=== PATIENT | male | born 1965 | race Caucasian/White ===

== ENCOUNTER 2018-11-01 07:21 | Outpatient (CLI) | payer OTHER, SELFPAY ==
[2018-11-01 08:01] LABS: Bilirubin Negative (Negative); Blood Moderate (Negative); Clarity Clear (Clear); Glucose Negative (Negative); Ketones Negative (Negative); Leukocyte Esterase Negative (Negative); Nitrite Negative (Negative); Specific Gravity 1.025 (1.005-1.025); Urobilinogen 0.2 EU/dL (Up TO 0.2)
[2018-11-01 08:15] LABS: C & S Indicated? Yes; Epithelial Cells Rare HPF (Negative); Mucus Trace (Negative); WBC 0-2 HPF (0-5)
[2018-11-01 09:35] LABS: CREATININE 1.11 mg/dL (0.70-1.30); Calculated LDL 93 mg/dL; Cholesterol 155 mg/dL (50-200); Glucose 106 mg/dL (70-100); HDL Cholesterol 34 mg/dL (40-60); Potassium 4.1 mmol/L (3.5-5.1); Triglyceride 141 mg/dL (30-150)
[2018-11-01 11:58] LABS: Bacteria Negative HPF (Negative); Crystals Negative HPF (Negative)
== END 2018-11-01 07:41 ==
PROVIDERS: PCP General Practice; Visit Provider General Practice
DX: I10 Essential (primary) hypertension (principal)
CPT/HCPCS: 36415; 80061; 82947; 83721; 81003; 81015; 82565; 84132; 87086

== ENCOUNTER 2018-11-17 11:35 | Outpatient (CLI) | payer OTHER, SELFPAY ==
[2018-11-17 12:02] LABS: Bilirubin Negative (Negative); Blood Small (Negative); Clarity Clear (Clear); Glucose Negative (Negative); Ketones Negative (Negative); Leukocyte Esterase Negative (Negative); Nitrite Negative (Negative); Urobilinogen 0.2 EU/dL (Up TO 0.2); pH 6.5 (5-8)
[2018-11-17 12:13] LABS: Bacteria Few HPF (Negative); C & S Indicated? No; Casts Negative LPF (Negative); Crystals Negative HPF (Negative); Epithelial Cells Rare HPF (Negative); Mucus Negative (Negative); WBC Negative HPF (0-5)
== END 2018-11-17 11:55 ==
PROVIDERS: PCP General Practice; Visit Provider General Practice
DX: R31.21 Asymptomatic microscopic hematuria (principal)
CPT/HCPCS: 81003; 81015

== ENCOUNTER 2019-10-09 16:13 | Outpatient (REF) | payer OTHER, SELFPAY ==
--- NOTE | 2019-10-09 15:10 | PAPNONF_PTH ---
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
[2019-10-09 21:13] LABS: Bilirubin Negative (Negative); Blood Trace-intact (Negative); Clarity Clear (Clear); Glucose Negative (Negative); Ketones Negative (Negative); Leukocyte Esterase Negative (Negative); Nitrite Negative (Negative); Specific Gravity 1.025 (1.005-1.025); Urobilinogen 0.2 EU/dL (Up TO 0.2)
[2019-10-09 21:21] LABS: Bacteria Negative HPF (Negative); C & S Indicated? No; Casts Negative LPF (Negative); Crystals Negative HPF (Negative); Epithelial Cells Rare HPF (Negative); Mucus Negative (Negative); RBC 0-2 HPF (0-2); WBC 0-2 HPF (0-5)
[2019-10-09 21:26] LABS: CREATININE 1.15 mg/dL (0.70-1.30); Potassium 3.8 mmol/L (3.5-5.1)
== END 2019-10-09 16:33 ==
LOC: LBN 16:13
PROVIDERS: PCP Nurse Practitioner; Visit Provider Nurse Practitioner
DX: I10 Essential (primary) hypertension (principal); Z85.828 Personal history of other malignant neoplasm of skin; Z86.19 Personal history of other infectious and parasitic diseases; Z87.448 Personal history of other diseases of urinary system; R31.9 Hematuria, unspecified
CPT/HCPCS: 81003; 81015; 82565; 84132; 88104

== ENCOUNTER 2020-10-22 21:15 | Outpatient (REF) | payer OTHER, SELFPAY ==
[2020-10-22 21:04] LABS: ESR 8 mm/hr (0-20)
[2020-10-22 21:14] LABS: C-Reactive Protein 2.17 mg/dL (0.0-0.3); CREATININE 1.2 mg/dL (0.70-1.30); Potassium 3.8 mmol/L (3.5-5.1); Uric Acid 7.9 mg/dL (3.5-7.2)
[2020-10-22 21:40] LABS: Hemoglobin A1C 5.9 % (<5.7)
[2020-10-24 14:07] LABS: ANA Interpretation Negative (Negative)
== END 2020-10-22 21:16 | disposition home or self-care (01) ==
LOC: LBN 21:15
PROVIDERS: PCP Nurse Practitioner; Visit Provider Physician Assistant
DX: I10 Essential (primary) hypertension (principal); R73.03 Prediabetes; M79.674 Pain in right toe(s)
CPT/HCPCS: 85652; 82565; 83036; 84132; 84550; 86038; 86140

== ENCOUNTER 2020-11-11 15:18 | Outpatient (CLI) | payer OTHER, SELFPAY | END 2020-11-11 15:19 | disposition home or self-care (01) | LOC: LBO 15:19 | PROVIDERS: PCP Nurse Practitioner; Visit Provider Nurse Practitioner | DX: Z77.011 Contact with and (suspected) exposure to lead (principal) | CPT/HCPCS: 36415; 83655 ==

== ENCOUNTER 2020-12-09 02:31 | Outpatient (CLI) | payer OTHER, SELFPAY ==
[2020-12-09 11:47] LABS: ALT 30 U/L (16-63); AST 18 U/L (15-37); Albumin 4.3 g/dL (3.4-5.0); Alkaline Phosphatase 89 U/L (46-116); Anion Gap 7.8 mmol/L (3-11); BUN 19 mg/dL (7-18); Bilirubin, Total 0.6 mg/dL (0.2-1.0); CO2 31.2 mmol/L (21.0-32.0); CREATININE 1.1 mg/dL (0.70-1.30); Calcium 9.3 mg/dL (8.5-10.1); Chloride 102 mmol/L (98-107); Glucose 104 mg/dL (74-106); Potassium 4.3 mmol/L (3.5-5.1); Sodium 141 mmol/L (136-145); Total Protein 7.7 g/dL (6.4-8.2); Uric Acid 7.3 mg/dL (3.5-7.2)
== END 2020-12-09 02:32 | disposition home or self-care (01) ==
LOC: LBO 02:31
PROVIDERS: PCP Nurse Practitioner; Visit Provider Nurse Practitioner
DX: I10 Essential (primary) hypertension (principal); M10.9 Gout, unspecified
CPT/HCPCS: 36415; 80053; 84550

== ENCOUNTER 2021-09-11 08:13 | Day surgery (SDC) | payer OTHER, SELFPAY ==
--- NOTE | 2021-09-11 00:09 | PDOC.DSDIS_ITS ---
Discharge Plan Disposition Patient Disposition: HOME Condition: Good Discharge Details Attending Provider: Terese Britt Primary Care Provider: Shaniqua Osullivan Home Meds and New Rx's Prescriptions: No Action valacyclovir [Valtrex] 1 gram tablet 1,000 mg PO DAILY PRN Label Comments: pt reports last took this 3 months ago hydrochlorothiazide 25 mg tablet 12.5 mg PO DAILY Qty: 90 4RF Discharge Instructions Additional Instructions: DSU Colonoscopy Post- Op Instructions Instructions for Everyone who is given Anesthesia: For your safety, please do the following for the next twenty-four (24) hours: *Do Not operate a motor vehicle (car, truck, motorcycle, etc.) *Do Not drink alcoholic beverages or use any recreational drugs for the first 24 hours or while taking pain medications. The medications in your body may have a reaction that can be dangerous. *Do Not make any important decisions or sign any important papers. Findings: normal Follow up: Repeat in 10 yrs time Of course, you should continue to have a yearly physical exam including a rectal exam, and stool for hemoccult blood testing (testing the stool for microscopic blood.) If you should ever notice any pain or difficulty having a bowel movement, blood in the stool, unexplained weight loss, or change in your bowel habits, please contact your health provider 1. No lifting over 20 pounds or strenuous activity for the first 24 hours after your procedure. After 24 hours there are no restrictions on your activity but you may feel fatigued for a few days. 2. After you arrive home you may have a light meal and return to your normal diet as you can tolerate it without feeling sick to your stomach. 3. You may have a bloated, gaseous feeling in your belly (abdomen) after a colonoscopy. Passing gas and belching will help. Walking or lying down on your left side with your knees flexed may relieve the discomfort. Call the office at [phone] (Office) or [phone] (Hospital) right away if you notice any of the following: a.Vomiting of blood or ?coffee ground stools?. b.Rectal bleeding 1Tbsp, blood clots or continuous bleeding. c.Severe belly (abdominal) pain. d.A hard distended belly (abdomen) and an inability to pass gas. 4. Please don?t expect to have a normal BM (bowel movement) for 2-3 days after your procedure. 5. If there are questions regarding the findings of your procedure, please contact your doctor 6. If you are unable to contact your doctor with a problem, contact the hospital at [phone]. 7. Continue all your regular medications unless directed otherwise. I understand the above instructions and have no questions. Signature of Patient or Adult Escort Name of Responsible Adult Escort Signature of Nurse Date/Time Activity:: see above Diet:: see above Discharge Orders Discharge Orders: Discharge Order (Routine); Ordered 09/10/21 Ordered By: Terese Britt
[2021-09-11 08:35] VITALS: BP 123/89; PULSE 69; RESP 16; TEMP 36.4; O2SAT 100
--- NOTE | 2021-09-11 08:57 | ANES.PREOP_ITS ---
General Info Date of Service Date Performed: 09/11/21 Height: 5 ft 10 in Weight: 82.8 kg Body Mass Index (BMI): 26.2 Surgical Procedure: Operation Date: 09/11/21 09:05 Proposed Procedure Side Surgeon p Colonoscopy Terese Britt DO Actual Procedure Side Surgeon p Colonoscopy Not Applicable Terese Britt DO Pre-Op Diagnosis Post-Op Diagnosis SCREENING COLONOSCOPY Meds Allergies and Home Medications Allergies Allergy/AdvReac Type Severity Reaction Status Date / Time mold AdvReac Severe fatique Verified 09/11/21 08:42 Milk Protein AdvReac Intermediate Left lower Uncoded 09/11/21 08:42 Quad Pain, reflux, change in bowel habits Home Medication Medication Instructions Recorded valacyclovir 1 gram tablet 1,000 mg PO DAILY PRN 12/11/20 (Valtrex) hydrochlorothiazide 25 mg tablet 12.5 mg PO DAILY #90 tabs 07/03/21 Current Visit Medications: Current Medications Generic Name Dose Route Start Last Admin Trade Name Freq PRN Reason Stop Dose Admin Hyoscyamine Sulfate 0.125 mg 09/10/21 09:36 Hyoscyamine 0.125 Mg Sl/Oral/Chew SL DIRECTED PRN Ringer's Solution 1,000 mls @ 80 mls/hr 09/11/21 06:00 IV 10/10/21 23:59 [facility] IV Miscellaneous Supplies 1 each 09/11/21 06:00 Iv Access IV 10/10/21 23:59 DIRECTED TIFFANY Ondansetron HCl 4 mg 09/10/21 09:36 Ondansetron 4 Mg/2 Ml Vial IVP Q4H PRN PRN Nausea / Vomiting Sodium Chloride 0 ml 09/11/21 06:00 Normal Saline Flush 10 Ml Syr IV 10/10/21 23:59 PRN PRN Sodium Chloride 0 ml 09/11/21 06:00 Normal Saline 10 Ml Vial IJ 10/10/21 23:59 DIRECTED PRN Sterile Water 0 ml 09/11/21 06:00 Water,Injection,Sterile 10 Ml Vial IJ 10/10/21 23:59 DIRECTED PRN PFSH Active Problems Active Problems: Problem Status Onset Code Hypertension I10 Screening for colon cancer Z12.11 Medical History Medical History (Updated 09/11/21 @ 08:40 by Jessica Lott RN) Anxiety 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 on 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 Gout History of cold sores History of deviated nasal septum pt reports 25 years ago History of hematuria Lipoma Pre-diabetes Primary HSV infection of mouth Wart Surgical History Surgical History (Updated 09/11/21 @ 08:42 by Jessica Lott RN) History of repair of anterior cruciate ligament of left knee History of surgical removal of ganglion cyst Pt reports 25 years ago, left wrist Tobacco Smoking/Tobacco Use Status: Never Passive smoking exposure: Yes Second hand exposure: Yes Alcohol Alcohol Intake: current Alcohol intake frequency: a few times a month Alcohol type: beer Substance Use Substance use: Never Substance use type: marijuana Vital Signs and Lab Results Vital Signs Most Recent Vital Signs in EMR: Most Recent Vital Signs Temp Pulse Resp BP Pulse Ox 36.4 C L 69 16 123/89 100 09/11/21 08:35 09/11/21 08:35 09/11/21 08:35 09/11/21 08:35 09/11/21 08:35 Lab Results Blood Type / Crossmatch: No Data to Display Complete Blood Count: No Data to Display Complete Metabolic Panel: No Data to Display Liver Function Panel: No Data to Display Coagulation Panel: No Data to Display Cardiac Panel: No Data to Display Arterial Blood Gas: No Data to Display Venous Blood Gas: No Data to Display Pancreas Panel: No Data to Display Thyroid Panel: No Data to Display Infectious Disease: No Data to Display Blood Cultures: No Data to Display Toxicology Panel: No Data to Display Anesthesia Assessment and Plan Anesthesia History Personal History: No History of Anesthesia Complications Family History: No Family History of Anesthesia Complications Exercise Tolerance Exercise Tolerance: Metabolic Equivalents>4 Pertinent Negatives Pertinent Negatives: No Symptoms of GERD, No Major Cardiovascular Symptoms or C omplaints, No Major Pulmonary Symptoms or Complaints and No History of CVA/TIA Cardiac & Pulmonary Exam Cardiac Exam: Normal S1/S2 Heart Sounds Pulmonary Exam: Clear Bilateral Breath Sounds Implantable Cardiac Device Does patient have a Pacemaker or an ICD?: No Airway Exam Known Difficult Airway: No Mallampati Class: 1 Mouth Opening: Normal (> 3cm) Thyromental Distance: Greater than 3 cm Neck Range of Motion: Full ROM Neck Circumference: Normal Teeth Condition: Normal Dentition Airway Comments: 31 cracked per pt ASA Classification ASA Score: ASA 2 Emergency Case?: No NPO Status NPO Status: NPO Clears >2 hours, Solids >8 hours Anesthesia Plan Resuscitation Status: Full Code Anesthesia Technique: General Anesthesia Airway Planned: Natural Airway Monitors Used: Standard Monitors
[2021-09-11 08:59] VITALS: BMI 26.2
[2021-09-11] MEDS: Lactated Ringers 1,000 ML 80 ML IV (09:00)
[2021-09-11 09:50] VITALS: BP 117/81; PULSE 60; RESP 16; TEMP 36.1; O2SAT 98
--- NOTE | 2021-09-11 09:55 | W.ANESPOSTOP ---
Postoperative Evaluation Date, Time and Location Date Performed: 09/11/21 Time Performed: 09:56 Patient Location: Day Surgery Unit Vital Signs Most Recent Imported Vital Signs: Most Recent Vital Signs Temp Pulse Resp BP Pulse Ox 36.4 C L 69 16 123/89 100 09/11/21 08:35 09/11/21 08:35 09/11/21 08:35 09/11/21 08:35 09/11/21 08:35 Most Recent Manually Entered Vital Signs: Adult Blood Pressure: 117/81 Heart Rate: 57 Respirations: 10 Oxygen Saturation (%): 98 Temperature (C): 36.3 C Pain Score (0-10 Scale): 0 Pain Score Most Recent Pain Score: Most Recent Pain Score Pain Level 0 09/11/21 08:35 Assessment Mental Status: Awake (Alert & Oriented to Patient Baseline) Airway and Respiratory Function: Patent airway with normal (patient baseline) respiratory exam Cardiovascular Function: Hemodynamically Stable Hydration Status: Adequately Hydrated Nausea & Vomiting: No Nausea or Vomiting Pain: Pt. Denies Any Pain Peripheral Nerve Block: Patient did not receive a nerve block
[2021-09-11 09:56] VITALS: BP 117/81; PULSE 57; RESP 10; TEMPC 36.3; O2SAT 98
--- NOTE | 2021-09-11 09:59 | COLE_ITS ---
Colonoscopy Report Date of procedure: 09/11/21 Pre-op diagnosis general: CRC scsreening Post-op diagnosis procedure note: other (normal) Surgeon: Terese Britt Anesthesia Type: General:No Airway Estimated blood loss (mL): 0 Pathology: none sent Complications: None Disposition: same day Prep: Miralax/Dulcolax Retraction Time: 9 mins Procedure Description: After informed consent was obtained the patient was taken to the procedure room and placed in a left decubitous position. Monitors were applied and a time out was done. The patients name, date of , procedure, allergies to medications and metal in their body was reviewed. The patient was then sedated. Once s edated and comfortable a rectal exam was done. External exam was normal. Internal exam revealed a normal sphincter tone and no palpable masses. The scope was then introduced and retrofelexed. No internal hemorrhoids were identified. The scope was then advanced to the cecum w/out difficulty. The TI and appendiceal orifice were identified. The prep was BBPS III in all segments for a total of 9. The scope was then slowly retracted over 9 minutes back into the rectum. There are no polyps, AVM's or diverticula visualized today. The mucosa is pink and healthy. The scope was removed and the patient was woken up and taken back to Same day surgery in stable condition. The patient tolerated the procedure well and there were no immediate complications. Follow up: The patient should follow up in 10 years unless they develop changes in bowel habits or other new gastrointestinal complaints.
[2021-09-11 10:26] VITALS: BP 134/78; PULSE 53; RESP 16; TEMP 35.9; O2SAT 100
== END 2021-09-11 11:00 | disposition home or self-care (01) ==
PROVIDERS: PCP Nurse Practitioner; Visit Provider Surgery
PROC: 0DJD8ZZ Inspection of Lower Intestinal Tract, Via Natural or Artificial Opening Endoscopic (ICD-10-PCS; CPT 45378; principal; 2021-09-11 09:00)
DX: Z12.11 Encounter for screening for malignant neoplasm of colon (principal); R73.03 Prediabetes; M10.9 Gout, unspecified
CPT/HCPCS: 45378

== ENCOUNTER 2021-09-14 15:02 | Outpatient (CLI) | payer OTHER, SELFPAY ==
[2021-09-14 14:32] LABS: Uric Acid 6.9 mg/dL (3.5-7.2)
== END 2021-09-14 15:03 | disposition home or self-care (01) ==
LOC: LBO 15:15
PROVIDERS: PCP Nurse Practitioner; Visit Provider Nurse Practitioner
DX: M10.9 Gout, unspecified (principal)
CPT/HCPCS: 36415; 84550

== ENCOUNTER 2022-06-22 16:37 | Outpatient (REF) | payer OTHER, SELFPAY ==
--- NOTE | 2022-06-22 14:30 | SKI_PTH ---
PATIENT: Fahad Bernabe LOC: [facility] U#:[id number] AGE/SX: 57/M ROOM: RE06/22/[address]: Sheldon Figueroa MD : 1965 BED: DIS: 06/22/2022 SPEC #: [id number] RECD: 06/23/22 12:45 STATUS: JOSE ROBERTO REMarielos #: [id number] CARISSA: 06/22/22 14:[address]: Sheldon Figueroa DEPT: Surgical Specimen RECD BY: Madelyn Ocasio ENTERED: 06/23/22 12:45 SP TYPE: GEAL LI DR: Taylor Alvarez, GAS LEAK TESTER Tissues: 1 - SKIN BIOPSY(SHAVE/PUNCH) Procedures: SKIN LEVEL 4 Comments: [id number]
== END 2022-06-22 16:38 | disposition home or self-care (01) ==
LOC: LBN 16:37
PROVIDERS: PCP Nurse Practitioner Family; Visit Provider Otolaryngology
DX: C44.319 Basal cell carcinoma of skin of other parts of face (principal)
CPT/HCPCS: 88305

== ENCOUNTER 2022-09-09 07:25 | Emergency (ER) | payer OTHER, SELFPAY ==
[2022-09-09 07:28] VITALS: BP 158/95; PULSE 78; RESP 14; TEMP 36.8; O2SAT 99
[2022-09-09 07:48] VITALS: BP 162/104
--- NOTE | 2022-09-09 08:02 | ED.GENADUL_ITS ---
Discharge Plan Disposition Patient Disposition: Home Discharge Details Clinical Impression: Cellulitis Primary Care Provider: Taylor Alvarez ED Provider: Ruthie Dye Home Meds and New Rx's Prescriptions: New sulfamethoxazole-trimethoprim [Bactrim DS] 800-160 mg tablet 1 tab PO Q12H 7 Days Qty: 14 0RF cephalexin 500 mg capsule 500 mg PO QID 7 Days Qty: 28 0RF No Action valacyclovir [Valtrex] 1 gram tablet 1,000 mg PO DAILY PRN Patient Comments: pt reports last took this 3 months ago hydrochlorothiazide 25 mg tablet 12.5 mg PO DAILY Qty: 90 4RF Patient Comments: not taking Discharge Instructions Instructions: Cellulitis (ED) Additional Instructions: Monitor closely for signs of worsening infection. If the redness increases, you develop streaking, fevers, or inability to tolerate the antibiotics please return immediately for reevaluation. Referrals: Taylor Alvarez, PROFESSOR OF LEGAL STUDIES [Primary Care Provider] - 3 days Discharge Data Discharge Physician: Ruthie Dye Medical Decision Making 57-year-old male presents for evaluation of redness and swelling to left elbow. Clinically this is consistent with cellulitis. Per patient's history bursitis and gout are less likely. No signs of systemic infection at this time. Patient is started on Bactrim and Keflex. He will monitor closely for signs of worsening infection and understands indications to return. HPI General Date/Time Provider Initiated Documentation: 09/09/22 07:52 . HPI Narrative: 57-year-old male presents for evaluation of pain and swelling to left elbow. Patient states that he was out gardening on Tuesday. He did not notice any bug bites or injuries at that time. He states that he did not overuse it. On Tuesday he noticed a small white spot on his elbow. For the last several days he has had increased swelling as well as redness and warmth to the area. He denies any fevers or chills. No numbness or tingling. Does not have a history of bursitis. He has had some difficulty with different joint pain and swelling since after a COVID-vaccine however has not definitively been diagnosed with gout. He is concerned as the swelling continues to increase. No areas of fluctuance. No open areas of skin. No known history of MRSA. No recent antibiotic use. Related Data Home Medications Medication Instructions Recorded Confirmed valacyclovir 1 gram tablet 1,000 mg PO DAILY PRN 12/11/20 09/09/22 (Valtrex) hydrochlorothiazide 25 mg tablet 12.5 mg PO DAILY #90 tabs 07/03/21 09/09/22 cephalexin 500 mg capsule 500 mg PO QID 7 days #28 caps 09/09/22 sulfamethoxazole 800 1 tab PO Q12H 7 days #14 tabs 09/09/22 mg-trimethoprim 160 mg tablet (Bactrim DS) Previous Rx's Medication Instructions Recorded hydrochlorothiazide 25 mg tablet 12.5 mg PO DAILY #90 tabs 07/03/21 cephalexin 500 mg capsule 500 mg PO QID 7 days #28 caps 09/09/22 sulfamethoxazole 800 1 tab PO Q12H 7 days #14 tabs 09/09/22 mg-trimethoprim 160 mg tablet (Bactrim DS) Allergies Allergy/AdvReac Type Severity Reaction Status Date / Time mold AdvReac Severe fatique Verified 09/09/22 07:36 Milk Protein AdvReac Intermediate Left lower Uncoded 09/09/22 07:36 Quad Pain, reflux, change in bowel habits General Stated Complaint: Orthopedic MONTRELL: 3 Review of Systems Constitutional Comments: No fevers or chills. 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 Brother No problems noted. Brother Hypertension Sister No problems noted. Sister No problems noted. Maternal Grandfather , in his 80s No problems noted. Paternal Grandfather , in his 50s No problems noted. Maternal Grandmother , in her 90s No problems noted. Paternal Grandmother No problems noted. Social History Smoking/Tobacco Use Status: Never Second Hand Exposure: Yes Smoking risk assessment performed?: Yes Alcohol Intake: current Alcohol Intake frequency: a few times a month Alcohol type: beer Drug use: Never Substance use type: does not use Caregiver/Support person: No Household members: none Housing: apartment Communication Needs: None Do you need help understanding health information?: Never Pets and animals: No Sexually active: Yes Do you think of yourself as: straight/heterosexual Current gender identity: male What is your relationship status?: never How often do you talk on the phone with friends or family?: once per week How often do you get together with friends or relatives?: decline to answer How often do you attend latter-day or yazidi services?: 1-3 times per year Do you belong to any clubs or organized social groups?: yes Panel score (0-1 are the most socially isolated patients): 1 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 Duration: 30-45 minutes/day Frequency: 3-4 times per week Yolanda/Gnosticist: Protestant Special yolanda needs: No Seatbelt use: always Helmet use: Yes Helmet use: always Drive intox or ride w/intox coach driver: No Do you feel safe at home: Yes Do you feel safe in your relationship?: Yes Exam Narrative Exam Narrative: General: non-toxic, no respiratory distress, comfortable HEENT: normocephalic, atraumatic, lids and lashes normal, PERRL, EOMI, anicteric sclera, no conjunctival injection, moist oral mucosa Musculoskeletal: Erythema, warmth, swelling to left elbow extending to proximal forearm as well as distal upper arm, no erythematous streaking noted, no areas of fluctuance, 2 small areas of raised white skin over the olecranon, 2+ radial pulses, sensation intact, able to fully range left fingers, wrist, elbow, shoulder, otherwise full range of motion of arms and legs, no tenderness to palpation. no clubbing, cyanosis, or edema Neurologic: appropriate for age, strength normal Psych: alert and oriented Skin: As above, otherwise no petechiae, no lesions, warm and dry Course Vital Signs Vital signs: Vital Signs Temperature 36.8 C 09/09/22 07:28 Pulse 78 09/09/22 07:28 Respiratory Rate 14 09/09/22 07:28 Blood Pressure 158/95 H 09/09/22 07:28 Pulse Oximetry 99 09/09/22 07:28 Temperature 36.8 C 09/09/22 07:28 Temperature Source Oral 09/09/22 07:28 Pulse 78 09/09/22 07:28 Respiratory Rate 14 09/09/22 07:28 Respiratory Effort Normal 09/09/22 07:33 Blood Pressure 158/95 H 09/09/22 07:28 Blood Pressure Position Sitting 09/09/22 07:28 Pulse Oximetry 99 09/09/22 07:28 Oxygen Delivery Method Room Air 09/09/22 07:28 Oxygen Flow Rate 0 09/09/22 07:28 Pain Level 8 09/09/22 07:34 Comment ibuprofen last night no otc meds today 09/09/22 07:28 PAWSS Have you Been Recently Intoxicated or Drunk Within the Last 30 days?: No Have you Ever Experienced Previous Episodes of Alcohol Withdrawal?: No Have you ever Experienced Withdrawal Seizures?: No Have you ever Experienced Delirium Tremens(DT)s?: No Have you ever undergone Alcohol Rehabilitation Treatment (i.e, inpt ot outpatient treatment programs)?: No Have you ever Experienced Blackouts?: No Have you ever Combined Alcohol with other Downers within the last 90 days?: No Have you ever Combined Alcohol with any other Substance of Abuse during the last 90 days?: No Positive Blood Alcohol level on Presentation? [PCS.BAL]: No Evidence of Increased Autonomic Activity (i.e. HR>120, tremor, sweating, agitation, nausea)?: No Result: 0
[2022-09-09 08:19] VITALS: BP 138/88; PULSE 77; O2SAT 97
[2022-09-09] MEDS: Cephalexin 500 MG CAP PO (08:27)
[2022-09-09] MEDS: Sulfameth/Trimeth DS TAB 1 TAB PO (08:27)
== END 2022-09-09 08:23 | disposition home or self-care (01) ==
PROVIDERS: Emergency Provider Emergency Medicine Emergency Medical Services; PCP Nurse Practitioner Family
DX: L03.114 Cellulitis of left upper limb (principal)
CPT/HCPCS: 99283; 99284

== ENCOUNTER 2022-09-09 13:58 | Observation (INO) | payer OTHER, SELFPAY ==
[2022-09-09] VITALS (33 sets, daily range): BP systolic 110–172; BP diastolic 72–109; PULSE 68–92; RESP 14–22; TEMP 36.5–37.6; O2SAT 93–99
--- NOTE | 2022-09-09 14:18 | W.ED.GENAD ---
Discharge Plan Disposition Patient Disposition: Admit to [facility] Condition: Stable Discharge Details Chief Complaint: Cellulitis Clinical Impression: Left arm cellulitis Primary Care Provider: Taylor Alvarez ED Provider: Ruthie Dye Home Meds and New Rx's Prescriptions: No Action valacyclovir [Valtrex] 1 gram tablet 1,000 mg PO DAILY PRN Patient Comments: pt reports last took this 3 months ago hydrochlorothiazide 25 mg tablet 12.5 mg PO DAILY Qty: 90 4RF Patient Comments: not taking sulfamethoxazole-trimethoprim [Bactrim DS] 800-160 mg tablet 1 tab PO Q12H 7 Days Qty: 14 0RF cephalexin 500 mg capsule 500 mg PO QID 7 Days Qty: 28 0RF Medical Decision Making 57-year-old male presents for worsening cellulitis to left upper extremity. On examination patient has had significant increased to erythema, swelling, and warmth extending down the forearm. He is neurologically intact. At this point I do feel that he will require IV antibiotics and admission. Patient was seen in consult by orthopedics who agree that this does not appear to be a septic joint. CT negative for abscess. Case discussed with hospitalist who will admit to their service. [facility] General Date/Time Provider Initiated Documentation: 09/09/22 14:01. HPI Narrative: 57-year-old male presents for evaluation of worsening cellulitis to left arm. Patient was seen here earlier this morning by myself. At that time he was started on Bactrim and Keflex for cellulitis. He had 2 small areas that may have been bug bites to his left elbow. Since time of discharge he has had significant increase to the erythema and swelling. It now extends almost the entire length of his forearm. He denies any fevers or chills. Related Data Home Medications Medication Instructions Recorded Confirmed valacyclovir 1 gram tablet 1,000 mg PO DAILY PRN 12/11/20 09/09/22 (Valtrex) hydrochlorothiazide 25 mg tablet 12.5 mg PO DAILY #90 tabs 07/03/21 09/09/22 cephalexin 500 mg capsule 500 mg PO QID 7 days #28 caps 09/09/22 sulfamethoxazole 800 1 tab PO Q12H 7 days #14 tabs 09/09/22 mg-trimethoprim 160 mg tablet (Bactrim DS) Previous Rx's Medication Instructions Recorded hydrochlorothiazide 25 mg tablet 12.5 mg PO DAILY #90 tabs 07/03/21 cephalexin 500 mg capsule 500 mg PO QID 7 days #28 caps 09/09/22 sulfamethoxazole 800 1 tab PO Q12H 7 days #14 tabs 09/09/22 mg-trimethoprim 160 mg tablet (Bactrim DS) Allergies Allergy/AdvReac Type Severity Reaction Status Date / Time mold AdvReac Severe fatique Verified 09/09/22 14:06 Milk Protein AdvReac Intermediate Left lower Uncoded 09/09/22 14:06 Quad Pain, reflux, change in bowel habits General Stated Complaint: Cellulitis MONTRELL: 3 Review of Systems Musculoskeletal Comments: Left elbow pain Integumentary/Breasts Comments: Significant erythema and warmth to left upper arm, elbow, and forearm Neurologic Comments: No numbness or tingling PFSH All Active Problems (Updated 09/09/22 @ 16:38 by Ruthie Dye MD) Left arm cellulitis (Acute) Cellulitis (Acute) Basal cell carcinoma of left cheek (Acute) Right shoulder pain (Acute) Skin lesion (Acute) Pre-diabetes (Acute) Anxiety (Chronic) Hypertension (Chronic) Medical History 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 Brother No problems noted. Brother Hypertension Sister No problems noted. Sister No problems noted. Maternal Grandfather , in his 80s No problems noted. Paternal Grandfather , in his 50s No problems noted. Maternal Grandmother , in her 90s No problems noted. Paternal Grandmother No problems noted. Social History Smoking/Tobacco Use Status: Never Second Hand Exposure: Yes Smoking risk assessment performed?: Yes Alcohol Intake: current Alcohol Intake frequency: a few times a month Alcohol type: beer Drug use: Never Substance use type: does not use Caregiver/Support person: No Household members: none Housing: apartment Communication Needs: None Do you need help understanding health information?: Never Pets and animals: No Sexually active: Yes Do you think of yourself as: straight/heterosexual Current gender identity: male What is your relationship status?: never How often do you talk on the phone with friends or family?: once per week How often do you get together with friends or relatives?: decline to answer How often do you attend amish or jainism services?: 1-3 times per year Do you belong to any clubs or organized social groups?: yes Panel score (0-1 are the most socially isolated patients): 1 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 Frequency: 3-4 times per week Yolanda/Congregational: Buddhist Special yolanda needs: No Seatbelt use: always Helmet use: Yes Helmet use: always Drive intox or ride w/intox 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 no wheezes, rales, rhonchi, or retractions Abd: soft, non-tender, non-distended, normal bowel sounds, no rebound or guarding, no peritoneal signs Musculoskeletal: significant erythema and warmth to distal upper arm extending down entire length forearm, mild swelling to left elbow without fluctuance, 2+ radial pulses, sensation intact, decreased range of motion left elbow secondary to pain and swelling, full range of motion of arms and legs, no tenderness to palpation. no clubbing, cyanosis, or edema Neurologic: appropriate for age, strength normal Psych: alert and oriented Skin: As above, otherwise no petechiae, no lesions, warm and dry Course Vital Signs Vital signs: Vital Signs Temperature 37.6 C 09/09/22 14:01 Pulse 92 H 09/09/22 14:01 Respiratory Rate 16 09/09/22 14:01 Blood Pressure 172/109 H 09/09/22 14:01 Pulse Oximetry 98 09/09/22 14:01 Temperature 37.6 C 09/09/22 14:01 Temperature Source Oral 09/09/22 14:01 Pulse 92 H 09/09/22 14:01 Respiratory Rate 16 09/09/22 14:01 Respiratory Effort Normal 09/09/22 14:04 Blood Pressure 172/109 H 09/09/22 14:01 Pulse Oximetry 98 09/09/22 14:01 Oxygen Delivery Method Room Air 09/09/22 14:01 Oxygen Flow Rate 0 09/09/22 14:01 Lab/Test Results Lab/Test Results: 09/09/22 14:02 Blood Blood Culture - Pending 09/09/22 14:02 Blood Blood Culture - Pending
[2022-09-09] MEDS: PIPERACILLIN/TAZO 4.5 GM in Normal Saline 100 ML IVPB (14:35)
[2022-09-09 14:49] LABS: Lactate 0.8 mmol/L (0.6-1.4)
[2022-09-09 14:50] LABS: Abs Immature Grans 0.05 10^3/uL (0.0-0.06); Absolute Basophil Count 0.04 10^3/uL (0.0-0.2); Absolute Eosinophil Count 0.14 10^3/uL (0.0-0.7); Absolute Lymphocyte Count 1.43 10^3/uL (1.2-3.4); Absolute Monocyte Count 0.96 10^3/uL (0.1-0.8); Absolute Neutrophil Count 9.85 10^3/uL (1.2-6.7); Basophils % 0.3; Eosinophils % 1.1; HCT 39.1 % (40.0-50.0); HGB 13.4 g/dL (13.5-17.5); Immature Grans % 0.4; Lymphocytes % 11.5; MCH 30.9 pg (27.0-33.0); MCHC 34.3 % (32.0-36.0); MCV 90 fL (80-95); MPV 11.7 fL (8.0-11.0); Monocytes % 7.7; Platelet Count 191 10^3/uL (130-400); RBC 4.33 10^6/uL (4.36-5.78); RDW 12.6 % (11.8-14.1); RDW-SD 41.8 fL; WBC 12.47 10^3/uL (4.4-10.8)
[2022-09-09 14:52] LABS: ESR 21 mm/hr (0-20)
--- NOTE | 2022-09-09 15:00 | DI.CT_ITS ---
Exam(s) CT UPPER EXTREMITY LT W EXAM: CT UPPER EXTREMITY LT W CLINICAL HISTORY: swelling, eval abscess TECHNIQUE: Imaging Protocol: Axial computed tomography images with coronal and sagittal reformatted images were created and reviewed. CONTRAST MATERIAL: Intravenous: Omnipaque 350 Contrast volume:100 mL contrast route:IV - COMPARISON: No exams were available for comparison FINDINGS: Bones: There is no evidence of fracture or dislocation. Bony alignment is satisfactory. No osteomyelitic changes are identified. There is no evidence of joint space narrowing or cystic degeneration seen. There is a small olecrano n spur. No lytic or sclerotic lesions are identified. Soft Tissues: Extreme edema in the subcutaneous fat beginning in the above the level of the elbow ex tending through the forearm to above the level of the wrist greater at the posterior aspect of the fo rearm.. No discrete drainable abscess or fluid collection. There is no visible joint effusion. IMPRESSION: Severe edema of the subcutaneous fat of the arm consistent with cellulitis. No drainable abscess or fluid collection. RADIATION DOSE DELIVERED: 272.3mGy.cm Total DLP DATA REPOSITORY: All CT scans at this facility are submitted to the National Radiology Data Registry (NRDR) Dose Index Registry (DIR) with the [employer] (ACR). RADIATION OPTIMIZATION: All CT scans at this facility use at least one of these dose optimization te chniques: automated exposure control; mA and/or kV adjustment per patient size (includes targeted exa ms where dose is matched to clinical indication); or iterative reconstruction.
[2022-09-09 15:07] LABS: C-Reactive Protein 4.45 mg/dL (0.0-0.3)
[2022-09-09 15:08] LABS: ALT 31 U/L (16-63); AST 21 U/L (15-37); Albumin 3.8 g/dL (3.4-5.0); Alkaline Phosphatase 89 U/L (46-116); Anion Gap 7.9 mmol/L (3-11); BUN 15 mg/dL (7-18); Bilirubin, Total 0.6 mg/dL (0.2-1.0); CO2 27.1 mmol/L (21.0-32.0); CREATININE 1.2 mg/dL (0.70-1.30); Calcium 8.7 mg/dL (8.5-10.1); Chloride 103 mmol/L (98-107); Estimated GFR 70.98 (mL/min/1.73m2); Glucose 106 mg/dL (74-106); Potassium 3.8 mmol/L (3.5-5.1); Sodium 138 mmol/L (136-145); Total Protein 7.6 g/dL (6.4-8.2); Uric Acid 5.4 mg/dL (3.5-7.2)
[2022-09-09] MEDS: VANCOMYCIN/WATER (PEG) 2 GM/400 ML BAG IVPB (15:11)
[2022-09-09] MEDS: Normal Saline - Diluent 50 ML VIAL IJ (16:01)
[2022-09-09] MEDS: Omnipaque 350 MG/ML 100 ML BTL IJ (16:03)
--- NOTE | 2022-09-09 16:06 | W.ORTHOCONSU ---
Date of service: 09/09/22 Time of Service: 16:06 Assessment and Plan Assessment and plan (1) Left arm cellulitis: Status: Acute Assessment and plan: 57-year-old gentleman with left arm cellulitis Pt with past medical history of hypertension, anxiety, prediabetes, presenting to the ER for left arm cellulitis worsening over the past 4 days. Was first seen this morning, given oral Bactrim and Keflex. Subsequently return to the ED for worsening symptoms, medical work-up obtained, IV vancomycin given, likely medical admission for IV antibiotics and observation requesting orthopedic consultation. Patient reports that intermittently over the past 2 years after receiving his first COVID-vaccine he has noticed joint pain that has resolved spontaneously in various locations, feet, thumbs, knees. On Tuesday he was outside working in his garden, does not recall any obvious injury or source of infection but wonders if he could have been bitten by a insect. Slow progressive symptoms over the past 4 days, much more aggressive since this morning. Denies fever, numbness, tingling. This is a well-appearing, nonseptic, 57-year-old gentleman speaking in full sentences. Left upper extremity, shoulder, unremarkable. Patient does have a mild diffuse erythema, warmth, induration that begins just proximal to the posterior elbow and goes distally to the wrist in a non or circumferential manner, sparing the flexor aspect. This area is all tender to palpation. Patient is able to nearly fully extend his elbow but does have limited flexion, approximately 90 degrees secondary to discomfort and tightness. No significant swelling around the olecranon. Along the posterior aspect of the elbow there is a single intact pustule but no obvious fluctuance or pointing abscess. No drainage. There is no discomfort in the antecubital fossa. Patient with a normal radial pulse and capillary refill, pulse in the 80s. Wrist and all 5 digits with full range of motion. WBC of 12.47. ESR 21 lactate 0.8 glucose 106 CRP 4.45, tick panel pending uric acid 5.4. Clinical picture most consistent with a spreading left arm cellulitis. No evidence of septic joint, septic olecranon bursitis, abscess, etc. At this time there is no clear indication for any orthopedic surgical intervention. Believe that medical management with continuing IV antibiotics at the discretion of the medical team, elevation, cool compresses, and continual reassessment as appropriate. Given his 2-year history of transient polyarthralgias, outpatient referral to rheumatology could certainly be reasonable. 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 Brother No problems noted. Brother Hypertension Sister No problems noted. Sister No problems noted. Maternal Grandfather , in his 80s No problems noted. Paternal Grandfather , in his 50s No problems noted. Maternal Grandmother , in her 90s No problems noted. Paternal Grandmother No problems noted. Social History Smoking/Tobacco Use Status: Never Second Hand Exposure: Yes Smoking risk assessment performed?: Yes Alcohol Intake: current Alcohol Intake frequency: a few times a month Alcohol type: beer Drug use: Never Substance use type: does not use Caregiver/Support person: No Household members: none Housing: apartment Communication Needs: None Do you need help understanding health information?: Never Pets and animals: No Sexually active: Yes Do you think of yourself as: straight/heterosexual Current gender identity: male What is your relationship status?: never How often do you talk on the phone with friends or family?: once per week How often do you get together with friends or relatives?: decline to answer How often do you attend orthodoxy or cheondoism services?: 1-3 times per year Do you belong to any clubs or organized social groups?: yes Panel score (0-1 are the most socially isolated patients): 1 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 Frequency: 3-4 times per week Yolanda/Druze: Pentecostalism Special yolanda needs: No Seatbelt use: always Helmet use: Yes Helmet use: always Drive intox or ride w/intox 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: No Do you feel safe at home: Yes Do you feel safe in your relationship?: Yes Results Last Vital Signs Temp 37.6 C 09/09/22 14:01 Pulse 92 H 09/09/22 14:01 Resp 16 09/09/22 14:01 BP 172/109 H 09/09/22 14:01 Pulse Ox 98 09/09/22 14:01 Labs 09/09/22 14:17 09/09/22 14:17 Labs: Laboratory Results - last 24 hr 09/09/22 09/09/22 09/09/22 14:17 14:17 14:17 WBC 12.47 H RBC 4.33 L Hgb 13.4 L Hct 39.1 L MCV 90 MCH 30.9 MCHC 34.3 RDW 12.6 Plt Count 191 MPV 11.7 H Immature Gran % 0.4 Neutrophils % 79.0 Lymphocytes % 11.5 Monocytes % 7.7 Eosinophils % 1.1 Basophils % 0.3 Nucleated RBC % 0.0 Absolute Neutrophils 9.85 H Absolute Lymphocytes 1.43 Absolute Monocytes 0.96 H Absolute Eosinophils 0.14 Absolute Basophils 0.04 ESR VBG Lactate 0.8 Sodium 138 Potassium 3.8 Chloride 103 Carbon Dioxide 27.1 Anion Gap 7.9 BUN 15 Creatinine 1.2 Est GFR (CKD-EPI 2020) 70.98 Glucose 106 Uric Acid 5.4 Calcium 8.7 Total Bilirubin 0.6 AST 21 ALT 31 Alkaline Phosphatase 89 C-Reactive Protein Total Protein 7.6 Albumin 3.8 09/09/22 09/09/22 14:17 14:17 WBC RBC Hgb Hct MCV MCH MCHC RDW Plt Count MPV Immature Gran % Neutrophils % Lymphocytes % Monocytes % Eosinophils % Basophils % Nucleated RBC % Absolute Neutrophils Absolute Lymphocytes Absolute Monocytes Absolute Eosinophils Absolute Basophils ESR 21 H VBG Lactate Sodium Potassium Chloride Carbon Dioxide Anion Gap BUN Creatinine Est GFR (CKD-EPI 2020) Glucose Uric Acid Calcium Total Bilirubin AST ALT Alkaline Phosphatase C-Reactive Protein 4.45 H Total Protein Albumin
[2022-09-09] MEDS: Normal Saline Flush 10 ML SYR IVP ×2 (16:07→20:09)
[2022-09-09] MEDS: Ketorolac 30 MG/ML VIAL IVP (17:08)
--- NOTE | 2022-09-09 19:21 | W.PM.HP.N ---
Date of service: 09/09/22 Time of Service: 19:21 Assessment and Plan Assessment and plan (1) Left arm cellulitis: Status: Acute Assessment and plan: Cellulitis left elbow Elevate, cool IV vanco and pip phillip Trend labs BC pending discussed with Dr Vázquez History of Present Illness History of Present Illness Chief Complaint: Cellulitis of left elbow Narrative: This is a 57-year-old male patient with past medical history of hypertension, anxiety, and prediabetes who presented to the [facility] ED with complaint of worsening cellulitis to left upper extremity. Patient was seen earlier in the day in the ED and put on oral antibioticsl; keflex and bactrim. On return, patient had significant increased erythema, swelling, and warmth extending down the forearm.? He is neurologically intact.?He was seen by orthopedics in the ED and was not felt to have a septic joint. In the ED WBC of 12.47. ESR 21 lactate 0.8 glucose 106 CRP 4.45, tick panel pending uric acid 5.4. He was started on Vancomycin and Pip Phillip in the ED. He is placed on observation status on the medical floor for continued assessment, testing and treatment. He is stable. He is a full code. 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 Brother No problems noted. Brother Hypertension Sister No problems noted. Sister No problems noted. Maternal Grandfather , in his 80s No problems noted. Paternal Grandfather , in his 50s No problems noted. Maternal Grandmother , in her 90s No problems noted. Paternal Grandmother No problems noted. Social History Smoking/Tobacco Use Status: Never Second Hand Exposure: Yes Smoking risk assessment performed?: Yes Alcohol Intake: current Alcohol Intake frequency: a few times a month Alcohol type: beer Drug use: Never Substance use type: does not use Caregiver/Support person: No Household members: none Housing: apartment Communication Needs: None Do you need help understanding health information?: Never Pets and animals: No Sexually active: Yes Do you think of yourself as: straight/heterosexual Current gender identity: male What is your relationship status?: never How often do you talk on the phone with friends or family?: once per week How often do you get together with friends or relatives?: decline to answer How often do you attend rastafarian or zoroastrian services?: 1-3 times per year Do you belong to any clubs or organized social groups?: yes Panel score (0-1 are the most socially isolated patients): 1 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 Frequency: 3-4 times per week Yolanda/Evangelical: Restorationism Special yolanda needs: No Seatbelt use: always Helmet use: Yes Helmet use: always Drive intox or ride w/intox hog driver: No Do you feel safe at home: Yes Do you feel safe in your relationship?: Yes Meds Allergies and Home Medications Allergies Allergy/AdvReac Type Severity Reaction Status Date / Time mold AdvReac Severe fatique Verified 09/09/22 14:06 Milk Protein AdvReac Intermediate Left lower Uncoded 09/09/22 14:06 Quad Pain, reflux, change in bowel habits Home Medications Medication Instructions Recorded Confirmed Type valacyclovir 1 gram tablet 1,000 mg PO DAILY PRN 12/11/20 09/09/22 History (Valtrex) hydrochlorothiazide 25 mg tablet 12.5 mg PO DAILY #90 tabs 07/03/21 09/09/22 Rx sulfamethoxazole 800 1 tab PO Q12H 7 days #14 tabs 09/09/22 Rx mg-trimethoprim 160 mg tablet (Bactrim DS) amoxicillin 875 mg-potassium 1 tab PO BID #20 tabs 09/11/22 Rx clavulanate 125 mg tablet ibuprofen 800 mg tablet 800 mg PO Q8H PRN #30 tabs 09/11/22 Rx Results Labs 09/11/22 06:28 09/11/22 06:28 Labs: Laboratory Results - last 24 hr 09/09/22 09/09/22 09/09/22 14:17 14:17 14:17 WBC 12.47 H RBC 4.33 L Hgb 13.4 L Hct 39.1 L MCV 90 MCH 30.9 MCHC 34.3 RDW 12.6 Plt Count 191 MPV 11.7 H Immature Gran % 0.4 Neutrophils % 79.0 Lymphocytes % 11.5 Monocytes % 7.7 Eosinophils % 1.1 Basophils % 0.3 Nucleated RBC % 0.0 Absolute Neutrophils 9.85 H Absolute Lymphocytes 1.43 Absolute Monocytes 0.96 H Absolute Eosinophils 0.14 Absolute Basophils 0.04 ESR VBG Lactate 0.8 Sodium 138 Potassium 3.8 Chloride 103 Carbon Dioxide 27.1 Anion Gap 7.9 BUN 15 Creatinine 1.2 Est GFR (CKD-EPI 2020) 70.98 Glucose 106 Uric Acid 5.4 Calcium 8.7 Total Bilirubin 0.6 AST 21 ALT 31 Alkaline Phosphatase 89 C-Reactive Protein Total Protein 7.6 Albumin 3.8 09/09/22 09/09/22 14:17 14:17 WBC RBC Hgb Hct MCV MCH MCHC RDW Plt Count MPV Immature Gran % Neutrophils % Lymphocytes % Monocytes % Eosinophils % Basophils % Nucleated RBC % Absolute Neutrophils Absolute Lymphocytes Absolute Monocytes Absolute Eosinophils Absolute Basophils ESR 21 H VBG Lactate Sodium Potassium Chloride Carbon Dioxide Anion Gap BUN Creatinine Est GFR (CKD-EPI 2020) Glucose Uric Acid Calcium Total Bilirubin AST ALT Alkaline Phosphatase C-Reactive Protein 4.45 H Total Protein Albumin Last Vital Signs Temp 37.2 C 09/09/22 18:03 Pulse 75 09/09/22 18:03 Resp 18 09/09/22 18:03 BP 151/91 H 09/09/22 18:03 Pulse Ox 99 09/09/22 18:03 Time Spent Time spent with Patient: 40-54 minutes Time was spent: preparing to see the patient(eg.review tests), obtaining and/or reviewing separately otained hiistory, ordering medications,tests, procedures, referring, communicating with other health healthcare network consultant, indepentently interpreting results and counseling the patient
[2022-09-09] MEDS: Ketorolac 15 MG/ML VIAL IVP (20:09)
[2022-09-09] MEDS: Zolpidem 10 MG TAB PO (22:30)
[2022-09-09] MEDS: HYDROmorphone 2 MG/ML SYR 1 MG IVP (22:36)
[2022-09-10] MEDS: Ketorolac 15 MG/ML VIAL IVP ×4 (02:08→20:28)
[2022-09-10] MEDS: PIPERACILLIN/TAZO 3.375 GM in Normal Saline 50 ML IVPB ×3 (02:09→18:37)
[2022-09-10] MEDS: Normal Saline Flush 10 ML SYR IVP ×5 (02:10→20:29)
[2022-09-10] MEDS: VANCOMYCIN/WATER (PEG) 1 GM/200 ML BAG IV ×2 (04:00→16:52)
[2022-09-10 04:10] VITALS: BP 114/76; PULSE 64; RESP 20; TEMP 36.8; O2SAT 96
[2022-09-10] MEDS: HYDROmorphone 2 MG/ML SYR 1 MG IVP ×4 (06:20→20:28)
[2022-09-10 06:53] LABS: Lactate 0.6 mmol/L (0.6-1.4)
[2022-09-10 07:05] LABS: Abs Immature Grans 0.05 10^3/uL (0.0-0.06); Absolute Basophil Count 0.06 10^3/uL (0.0-0.2); Absolute Eosinophil Count 0.28 10^3/uL (0.0-0.7); Absolute Monocyte Count 0.88 10^3/uL (0.1-0.8); Absolute Neutrophil Count 7.17 10^3/uL (1.2-6.7); Basophils % 0.6; Eosinophils % 2.8; HGB 13.3 g/dL (13.5-17.5); Immature Grans % 0.5; Lymphocytes % 16.8; MCH 30.8 pg (27.0-33.0); MCHC 33.3 % (32.0-36.0); MCV 93 fL (80-95); Monocytes % 8.7; Neutrophils % 70.6; RBC 4.32 10^6/uL (4.36-5.78); RDW 12.8 % (11.8-14.1); RDW-SD 43.8 fL; WBC 10.14 10^3/uL (4.4-10.8)
[2022-09-10 07:17] VITALS: BP 120/75; PULSE 65; TEMP 36.5; O2SAT 95
[2022-09-10 07:25] LABS: ALT 28 U/L (16-63); AST 20 U/L (15-37); Albumin 3.4 g/dL (3.4-5.0); Alkaline Phosphatase 82 U/L (46-116); Anion Gap 10.3 mmol/L (3-11); BUN 15 mg/dL (7-18); Bilirubin, Total 0.9 mg/dL (0.2-1.0); C-Reactive Protein 6.48 mg/dL (0.0-0.3); CO2 23.7 mmol/L (21.0-32.0); CREATININE 1.1 mg/dL (0.70-1.30); Calcium 8.3 mg/dL (8.5-10.1); Chloride 106 mmol/L (98-107); Estimated GFR 78.79 (mL/min/1.73m2); Glucose 111 mg/dL (74-106); Magnesium 2.1 mg/dL (1.8-2.4); Potassium 4.2 mmol/L (3.5-5.1); Sodium 140 mmol/L (136-145); Total Protein 6.5 g/dL (6.4-8.2)
[2022-09-10 07:49] LABS: Procalcitonin < 0.1 ng/mL
[2022-09-10 11:23] VITALS: BP 129/83; PULSE 70; TEMP 36.1; O2SAT 94
--- NOTE | 2022-09-10 14:29 | INITIAL_ITS ---
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 Mother, Meghan in [place] CURRENT FUNCTIONAL STATUS:: Fahad remains inpatient at [employer]; he has a concert planned for tomorrow night and would like to still attend. Awaiting antibiotic treatment course to determine discharge planning considerations. CM following. ADVANCE DIRECTIVES:: None on file. Has patient been provided with info about the portal/API?: Yes Did the patient sign up for the portal?: Yes CODE STATUS:: Full Code INSURANCE COVERAGE / FINANCIAL ISSUES:: [employer] CURRENT HOME/COMMUNITY SERVICES/EQUIPMENT:: None PRIMARY CARE PHYSICIAN:: Taylor Alvarez POTENTIAL DISCHARGE NEEDS:: Review discharge instructions. PATIENT/FAMILY EDUCATION NEEDS:: Review discharge instructions, discuss Ask Me Three. ANTICIPATED BARRIERS TO DISCHARGE:: May require terminal clerk IV ABX TRANSPORTATION:: Via private vehicle PLAN:: Fahad will return home when ready per MD, awaiting determination for AB X course, CM continues to follow. 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 Brother No problems noted. Brother Hypertension Sister No problems noted. Sister No problems noted. Maternal Grandfather , in his 80s No problems noted. Paternal Grandfather , in his 50s No problems noted. Maternal Grandmother , in her 90s No problems noted. Paternal Grandmother No problems noted. Social History Smoking/Tobacco Use Status: Never Second Hand Exposure: Yes Smoking risk assessment performed?: Yes Alcohol Intake: current Alcohol Intake frequency: a few times a month Alcohol type: beer Drug use: Never Substance use type: does not use Caregiver/Support person: No Household members: none Housing: apartment Communication Needs: None Do you need help understanding health information?: Never Pets and animals: No Sexually active: Yes Do you think of yourself as: straight/heterosexual Current gender identity: male What is your relationship status?: never How often do you talk on the phone with friends or family?: once per week How often do you get together with friends or relatives?: decline to answer How often do you attend adventist or scientology services?: 1-3 times per year Do you belong to any clubs or organized social groups?: yes Panel score (0-1 are the most socially isolated patients): 1 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
[2022-09-10 15:08] VITALS: BP 128/73; PULSE 67; TEMP 37.1; O2SAT 97
--- NOTE | 2022-09-10 18:25 | PGE_ITS ---
Date of Service Date of service: 09/10/22 Time of Service: 18:25 Assessment and Plan Assessment and plan (1) Left arm cellulitis: Status: Acute Assessment and plan: Cellulitis left elbow - improving Elevate, cool IV vanco and pip phillip Trend labs BC pending - neg @ 24h Up in the room walking discussed with Dr Vázquez Subjective Subjective Patient reports: no new complaints, feels better, pain is less, tolerating a regular diet, bowel movement and afebrile; denies diarrhea or nausea Interval history since last seen: Fahad is feeling better today, he feels that his arm is less tight. Exam Narrative Exam Narrative: General: non-toxic, no respiratory distress, comfortable HEENT: normocephalic, atraumatic, lids and lashes normal, PERRL, EOMI, anicteric sclera, no conjunctival injection, moist oral mucosa Card: regular rate and rhythm, S1S2, no murmurs, rubs, or gallops Lungs: good air entry, clear to auscultation bilaterally. no wheezes, rales, rhonchi, or retractions Abd: soft, non-tender, non-distended, normal bowel sounds, no rebound or guarding, no peritoneal signs Musculoskeletal: significant erythema and warmth to distal upper arm extending down entire length forearm, mild swelling to left elbow without fluctuance, 2+ radial pulses, sensation intact, decreased range of motion left elbow secondary to pain and swelling, full range of motion of arms and legs, no tenderness to palpation. no clubbing, cyanosis, or edema; marked yesterday, slightly receded, less swollen Neurologic: appropriate for age, strength normal Psych: alert and oriented Skin: As above, otherwise no petechiae, no lesions, warm and dry Objective Last Vital Signs Temp 37.1 C 09/10/22 15:08 Pulse 67 09/10/22 15:08 Resp 20 09/10/22 04:10 BP 128/73 09/10/22 15:08 Pulse Ox 97 09/10/22 15:08 Laboratory Results - last 24 hr 09/10/22 09/10/22 09/10/22 06:45 06:45 06:45 WBC 10.14 RBC 4.32 L Hgb 13.3 L Hct 40.0 MCV 93 MCH 30.8 MCHC 33.3 RDW 12.8 Plt Count MPV Immature Gran % 0.5 Neutrophils % 70.6 Lymphocytes % 16.8 Monocytes % 8.7 Eosinophils % 2.8 Basophils % 0.6 Nucleated RBC % 0.0 Absolute Neutrophils 7.17 H Absolute Lymphocytes 1.70 Absolute Monocytes 0.88 H Absolute Eosinophils 0.28 Absolute Basophils 0.06 VBG Lactate 0.6 Sodium 140 Potassium 4.2 Chloride 106 Carbon Dioxide 23.7 Anion Gap 10.3 BUN 15 Creatinine 1.1 Est GFR (CKD-EPI 2020) 78.79 Glucose 111 H Calcium 8.3 L Magnesium 2.1 Total Bilirubin 0.9 AST 20 ALT 28 Alkaline Phosphatase 82 C-Reactive Protein 6.48 H Total Protein 6.5 Albumin 3.4 Procalcitonin < 0.1 Time Spent with Patient Time Spent with Patient: 25-34 minutes Time was spent: preparing to see the patient(eg.review tests), ordering medications,tests, procedures, referring, communicating with other health adult caregiver, indepentently interpreting results, counseling the patient and care coordination
[2022-09-10 19:55] VITALS: BP 145/89; PULSE 66; RESP 20; TEMP 36.6; O2SAT 100
[2022-09-10 23:47] VITALS: BP 128/78; PULSE 59; RESP 16; TEMP 36.1; O2SAT 95
[2022-09-11] MEDS: Ketorolac 15 MG/ML VIAL IVP ×2 (02:14→07:45)
[2022-09-11] MEDS: PIPERACILLIN/TAZO 3.375 GM in Normal Saline 50 ML IVPB (02:14)
[2022-09-11] MEDS: Normal Saline Flush 10 ML SYR IVP ×3 (02:15→07:45)
[2022-09-11 03:47] VITALS: BP 120/75; PULSE 66; RESP 16; TEMP 36.4; O2SAT 95
[2022-09-11] MEDS: HYDROmorphone 2 MG/ML SYR 1 MG IVP (03:55)
[2022-09-11] MEDS: VANCOMYCIN/WATER (PEG) 1 GM/200 ML BAG IV (03:55)
[2022-09-11 07:40] LABS: Abs Immature Grans 0.03 10^3/uL (0.0-0.06); Absolute Basophil Count 0.06 10^3/uL (0.0-0.2); Absolute Eosinophil Count 0.31 10^3/uL (0.0-0.7); Absolute Lymphocyte Count 2.01 10^3/uL (1.2-3.4); Absolute Monocyte Count 0.75 10^3/uL (0.1-0.8); Basophils % 0.7; Eosinophils % 3.4; HCT 38.3 % (40.0-50.0); HGB 12.6 g/dL (13.5-17.5); Immature Grans % 0.3; Lymphocytes % 22.2; MCHC 32.9 % (32.0-36.0); MCV 91 fL (80-95); MPV 12.3 fL (8.0-11.0); Monocytes % 8.3; Neutrophils % 65.1; Platelet Count 194 10^3/uL (130-400); RDW 12.8 % (11.8-14.1); RDW-SD 42.4 fL; WBC 9.06 10^3/uL (4.4-10.8)
[2022-09-11 07:53] LABS: Anion Gap 8.8 mmol/L (3-11); BUN 15 mg/dL (7-18); C-Reactive Protein 5.47 mg/dL (0.0-0.3); CO2 26.2 mmol/L (21.0-32.0); Calcium 8.6 mg/dL (8.5-10.1); Chloride 106 mmol/L (98-107); Estimated GFR 88.33 (mL/min/1.73m2); Glucose 95 mg/dL (74-106); Magnesium 1.9 mg/dL (1.8-2.4); Sodium 141 mmol/L (136-145)
[2022-09-11 07:57] VITALS: BP 127/81; PULSE 70; RESP 18; TEMP 35.9; O2SAT 100
--- NOTE | 2022-09-11 09:06 | W.PM.DS.N ---
Date of service: 09/11/22 Time of Service: 09:06 DS: Diagnosis Discharge Diagnosis (1) Left arm cellulitis: Status: Acute Discharge Plan Disposition Patient Disposition: Home Condition: Improving Discharge Details Reason For Visit: Cellulitis Admit Date/Time: 09/09/22 16:36 Admit Provider: Marcos Vázquez Attending Provider: Marcos Vázquez Primary Care Provider: Mark Alvareznah [facility] Course Hospital Course: This is a 57-year-old male patient with past medical history of hypertension, anxiety, and? prediabetes who presented to the [facility] ED with complaint of worsening cellulitis to left upper extremity. Patient was seen earlier in the day in the ED and put on oral antibioticsl; keflex and bactrim.? On return,? patient had significant increased erythema, swelling, and warmth extending down the forearm.? He is neurologically intact.?He was seen by orthopedics in the ED and was not felt to have a septic joint. In the ED WBC of 12.47.? ESR 21 lactate 0.8 glucose 106 CRP 4.45, tick panel pending uric acid 5.4. He was started on Vancomycin and Pip Jose in the ED. He was placed on observation status on the medical floor for continued assessment, testing and treatment.? He was stable.? He is a full code. His arm improved, decreased swelling, decreased pain, decreased warmth and erythema. He is discharged to home with 10 days of Augmentin and to complete the course of Bactrim he started. He was instructed to stop the cephalexin. He can take Ibuprofen for pain and swelling. He was encouraged to take a probiotic. Home Meds and New Rx's Prescriptions: New amoxicillin-pot clavulanate 875-125 mg tablet 1 tab PO BID Qty: 20 0RF ibuprofen 800 mg tablet 800 mg PO Q8H PRNQty: 30 0RF Continued valacyclovir [Valtrex] 1 gram tablet 1,000 mg PO DAILY PRN Patient Comments: pt reports last took this 3 months ago hydrochlorothiazide 25 mg tablet 12.5 mg PO DAILY Qty: 90 4RF Patient Comments: not taking sulfamethoxazole-trimethoprim [Bactrim DS] 800-160 mg tablet 1 tab PO Q12H 7 Days Qty: 14 0RF Discontinued cephalexin 500 mg capsule 500 mg PO QID 7 Days Qty: 28 0RF Discharge Instructions Instructions: Sulfamethoxazole/Trimethoprim (By mouth), Ibuprofen (By mouth), Amoxicillin/Clavulanate Potassium (By mouth), Probiotic (By mouth), Cellulitis (DC) Additional Instructions: Continue Bactrim until finished. Start Augmentin and complete course. Ibuprofen 800 mg every 8 hours for pain and swelling. Cool compressess and elevation. Take a probiotic. Follow up with PCP. Stand Alone Forms: Nursing Discharge Form Referrals: Taylor Alvarez DRUM TESTER [Primary Care Provider] - (Please call Tuesday to make a follow up appointment for 1-2 weeks. ) Activity:: Activity as Tolerated Equipment/Supplies:: No Equipment Needed Diet:: As Tolerated Discharge Orders Discharge Orders: Discharge Order (Routine); Ordered 09/11/22 Ordered By: Anjali Reyes Discharge Data Discharge Date/Time-TO BE ENTERED AT DEPARTURE: 09/11/22 10:03 DS: Summary Time Spent with Patient providing and/or coordinating discharge services: Greater than 30 minutes Status at Discharge Functional status at discharge: independent ambulation Overall status at discharge: patient is progressing back to baseline Mental Status: mental status grossly normal Speech and Movement: speech and movement normal Mood: congruent mood Affect: normal affect Exam Narrative Exam Narrative: General: non-toxic, no respiratory distress, comfortable HEENT: normocephalic, atraumatic, lids and lashes normal, PERRL, EOMI, anicteric sclera, no conjunctival injection, moist oral mucosa Card: regular rate and rhythm, S1S2, no murmurs, rubs, or gallops Lungs: good air entry, clear to auscultation bilaterally. no wheezes, rales, rhonchi, or retractions Abd: soft, non-tender, non-distended, normal bowel sounds, no rebound or guarding, no peritoneal signs Musculoskeletal: significant erythema and warmth to distal upper arm improving, receeded 4 cm from making yesterday; mild swelling to left elbow without fluctuance, 2+ radial pulses, sensation intact, decreased range of motion left elbow secondary to pain and swelling, full range of motion of arms and legs, no tenderness to palpation. no clubbing, cyanosis, or edema; marked yesterday, slightly receded, less swollen Neurologic: appropriate for age, strength normal Psych: alert and oriented Skin: As above, otherwise no petechiae, no lesions, warm and dry Psych Mental Status: mental status grossly normal Speech and Movement: speech and movement normal Mood: congruent mood Affect: normal affect DS: Data Vitals/I&O Vitals and I&O: Vital Signs Temperature 35.9 C L 09/11/22 07:57 Temperature Source Tympanic 09/11/22 07:57 Pulse 70 09/11/22 07:57 Pulse Rhythm Regular 09/11/22 03:36 Pulse 80 09/09/22 15:45 Respiratory Rate 18 09/11/22 07:57 Respiratory Effort Normal, Non-Labored 09/11/22 03:36 Respiratory Depth Normal 09/11/22 03:36 Respiratory Pattern Normal 09/11/22 03:36 Blood Pressure 127/81 09/11/22 07:57 Blood Pressure Mean 95 09/09/22 17:30 Pulse Oximetry 100 09/11/22 07:57 Oxygen Delivery Method Room Air 09/11/22 07:57 Oxygen Flow Rate 0 09/11/22 07:57 Pain Level 3 09/11/22 07:45 Intake & Output 09/10/22 09/10/22 09/11/22 11:59 23:59 11:59 Intake Total 250 / 550 300 / 550 200 / 200 Balance 250 / 550 300 / 550 200 / 200 Intake: IV 250 / 550 300 / 550 200 / 200 Other: Urine Appearance Clear Data Completed and Pending Labs on day of discharge: Labs from last 24 hours 09/11/22 09/11/22 06:28 06:28 WBC 9.06 RBC 4.20 L Hgb 12.6 L Hct 38.3 L MCV 91 MCH 30.0 MCHC 32.9 RDW 12.8 Plt Count 194 MPV 12.3 H Immature Gran % 0.3 Neutrophils % 65.1 Lymphocytes % 22.2 Monocytes % 8.3 Eosinophils % 3.4 Basophils % 0.7 Nucleated RBC % 0.0 Absolute Neutrophils 5.90 Absolute Lymphocytes 2.01 Absolute Monocytes 0.75 Absolute Eosinophils 0.31 Absolute Basophils 0.06 Sodium 141 Potassium 4.0 Chloride 106 Carbon Dioxide 26.2 Anion Gap 8.8 BUN 15 Creatinine 1.0 Est GFR (CKD-EPI 2020) 88.33 Glucose 95 Calcium 8.6 Magnesium 1.9 C-Reactive Protein 5.47 H Preliminary micro results at discharge 09/09/22 14:43 Blood Culture - Preliminary Blood NO GROWTH 24 HOURS 09/09/22 14:17 Blood Culture - Preliminary Blood NO GROWTH 24 HOURS PFSH All Active Problems (Updated 09/09/22 @ 16:38 by Ruthie Dye MD) Left arm cellulitis (Acute) Cellulitis (Acute) Basal cell carcinoma of left cheek (Acute) Right shoulder pain (Acute) Skin lesion (Acute) Pre-diabetes (Acute) Anxiety (Chronic) Hypertension (Chronic) Medical History 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 Brother No problems noted. Brother Hypertension Sister No problems noted. Sister No problems noted. Maternal Grandfather , in his 80s No problems noted. Paternal Grandfather , in his 50s No problems noted. Maternal Grandmother , in her 90s No problems noted. Paternal Grandmother No problems noted. Social History Smoking/Tobacco Use Status: Never Second Hand Exposure: Yes Smoking risk assessment performed?: Yes Alcohol Intake: current Alcohol Intake frequency: a few times a month Alcohol type: beer Drug use: Never Substance use type: does not use Caregiver/Support person: No Household members: none Housing: apartment Communication Needs: None Do you need help understanding health information?: Never Pets and animals: No Sexually active: Yes Do you think of yourself as: straight/heterosexual Current gender identity: male What is your relationship status?: never How often do you talk on the phone with friends or family?: once per week How often do you get together with friends or relatives?: decline to answer How often do you attend muslim or evangelical services?: 1-3 times per year Do you belong to any clubs or organized social groups?: yes Panel score (0-1 are the most socially isolated patients): 1 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
--- NOTE | 2022-09-11 14:53 | PDOC.CMDIS ---
Date of service: 09/11/22 Time of Service: 14:53 LACE Index Scoring Tool Questions: Length of Stay (in days): 2 Was the patient admitted via the E.D.?: Yes Comorbidities: Any Tumor E.D. Visits: 1 Answers: Total Score: 8 Risk of Readmission: Low Risk Care Management Discharge Plan Reason for Hospitalization: Cellulitis Discharge Plan: Fahad will return home when ready per MD, awaiting determination for ABX course, CM continues to follow. Patient/Family Education Needs: Per provider: Continue Bactrim until finished. Start Augmentin and complete course. Ibuprofen 800 mg every 8 hours for pain and swelling. Cool compresses and elevation. Take a probiotic. Discharge instructions reviewed, discuss Ask Me Three.
[2022-09-13 12:09] LABS: Lyme Ab w Rflx to Lyme Confirm Negative (Negative)
[2022-09-14 14:52] LABS: Anaplasma phagocytophilum Negative (Negative); B. miyamotoi PCR Negative (Negative); Babesia divergens/MO-1 Negative (Negative); Babesia duncani Negative (Negative); Babesia microti Negative (Negative); Ehrlichia chaffeensis Negative (Negative); Ehrlichia ewingii/canis Negative (Negative); Ehrlichia muris eauclairensis Negative (Negative)
== END 2022-09-11 10:03 | disposition home or self-care (01) ==
LOC: ER 17:11 → MS 17:57
PROVIDERS: Nurse Practitioner Family; Admitting Provider Family Medicine; Emergency Provider Emergency Medicine Emergency Medical Services; PCP Nurse Practitioner Family; Visit Provider Family Medicine
DX: L03.114 Cellulitis of left upper limb (principal); I10 Essential (primary) hypertension; R73.03 Prediabetes; F41.9 Anxiety disorder, unspecified; Z79.899 Other long term (current) drug therapy
CPT/HCPCS: 36415; 80048; 80053; 84145; 85652; 87040; 87798; 96365; 96366; 96368; 96374; 96375; 99285; 73201; 83605; 83735; 84550; 85025; 86140; 86618; 99222; 99232; 99239; G0378; J1170; J1885; J2543; J3490

== ENCOUNTER 2023-03-17 09:08 | Outpatient (CLI) | payer OTHER, SELFPAY ==
[2023-03-17 08:03] LABS: BUN 12 mg/dL (7-18); CREATININE 1.3 mg/dL (0.70-1.30); Calcium 9.5 mg/dL (8.5-10.1); Calculated LDL 104 mg/dL (<100); Chloride 100 mmol/L (98-107); Cholesterol 162 mg/dL (<200); Estimated GFR 64.47 (mL/min/1.73m2); Glucose 122 mg/dL (74-106); HDL Cholesterol 45 mg/dL (40-60); Sodium 140 mmol/L (136-145); Triglyceride 69 mg/dL (<150)
[2023-03-17 08:06] LABS: Hemoglobin A1C 5.7 % (<5.7)
== END 2023-03-17 09:09 | disposition home or self-care (01) ==
LOC: LBO 09:08
PROVIDERS: PCP Nurse Practitioner Family; Visit Provider Nurse Practitioner Family
DX: F41.9 Anxiety disorder, unspecified (principal); I10 Essential (primary) hypertension; R73.03 Prediabetes; Z00.00 Encounter for general adult medical examination without abnormal findings
CPT/HCPCS: 36415; 80048; 80061; 83036

== ENCOUNTER 2024-02-13 11:59 | Outpatient (CLI) | payer OTHER, SELFPAY ==
[2024-02-13 07:22] LABS: HCT 46.6 % (40.0-50.0); HGB 15.1 g/dL (13.5-17.5); MCH 30.6 pg (27.0-33.0); MCHC 32.4 % (32.0-36.0); MCV 94 fL (80-95); MPV 11.6 fL (8.0-11.0); Platelet Count 208 10^3/uL (130-400); RBC 4.94 10^6/uL (4.36-5.78); RDW 12.5 % (11.8-14.1); RDW-SD 43.1 fL; WBC 7.33 10^3/uL (4.4-10.8)
[2024-02-13 08:37] LABS: ALT 26 U/L (16-63); AST 22 U/L (15-37); Albumin 4.2 g/dL (3.4-5.0); Alkaline Phosphatase 85 U/L (46-116); Anion Gap 8.7 mmol/L (3-11); BUN 18 mg/dL (7-18); CO2 27.3 mmol/L (21.0-32.0); CREATININE 1.2 mg/dL (0.70-1.30); Calcium 9.3 mg/dL (8.5-10.1); Calculated LDL 109 mg/dL (<100); Chloride 102 mmol/L (98-107); Cholesterol 199 mg/dL (<200); Estimated GFR 70.53 (mL/min/1.73m2); Glucose 129 mg/dL (74-106); HDL Cholesterol 45 mg/dL (40-60); Potassium 4.1 mmol/L (3.5-5.1); Sodium 138 mmol/L (136-145); TSH (W/Ref FT4) 4.94 uIU/mL (0.36-3.74); Triglyceride 229 mg/dL (<150)
[2024-02-13 08:57] LABS: FREE T4 0.89 ng/dL (0.76-1.46)
== END 2024-02-13 12:00 | disposition home or self-care (01) ==
LOC: LBO 11:59
PROVIDERS: PCP Nurse Practitioner Family; Visit Provider Nurse Practitioner Family
DX: Z00.00 Encounter for general adult medical examination without abnormal findings (principal); F41.9 Anxiety disorder, unspecified; F32.A Depression, unspecified; I10 Essential (primary) hypertension; R73.03 Prediabetes
CPT/HCPCS: 36415; 80053; 80061; 85027; 84439; 84443

== ENCOUNTER 2024-08-29 07:46 | Outpatient (CLI) | payer OTHER, SELFPAY ==
--- NOTE | 2024-08-29 08:26 | DI.RAD_ITS ---
Exam(s) XR FOOT RT COMPLETE EXAM: XR FOOT RT COMPLETE CLINICAL HISTORY: rt foot pain [id number]. TECHNIQUE: 2D digital imaging was performed of the right foot. Three images were obtained. AP, obl ique and lateral views were obtained. COMPARISON: No exams were available for comparison FINDINGS: BONES: No acute fracture is present. No bony destructive lesion is seen. There is a bipartite medial sesamoid at the head of the 1st metatarsal. JOINTS: No dislocation present. The joint spaces are well maintained. SOFT TISSUE: There is a tiny triangular density medial to the head of the proximal phalanx of the 5th toe of uncertain if any clinical significance. This may represent a foreign body. Please correlate with patient's clinical history. IMPRESSION: No acute fracture or dislocation. No acute abnormality. Please see the above discussion for complet e details. DATA REPOSITORY: RADIATION DOSE DELIVERED:
--- NOTE | 2024-08-29 08:26 | DI.RAD_ITS ---
Exam(s) XR FOOT LT COMPLETE EXAM: XR FOOT LT COMPLETE CLINICAL HISTORY: Left foot pain [id number]. TECHNIQUE: 2D digital imaging was performed of the left foot. Three images were obtained. AP, obli que and lateral views were obtained. COMPARISON: No exams were available for comparison FINDINGS: BONES: No acute fracture is present. No bony destructive lesion is seen. There is a tiny enthesophyte at the posterior calcaneus. JOINTS: No dislocation present. The joint spaces are well maintained. SOFT TISSUE: Dystrophic calcifications are seen in the soft tissues of the 5th toe. IMPRESSION: No acute fracture or dislocation. Small calcaneal spur. DATA REPOSITORY: RADIATION DOSE DELIVERED:
== END 2024-08-29 08:06 ==
LOC: DI 07:46
PROVIDERS: PCP Nurse Practitioner Family; Visit Provider Podiatrist
DX: M79.672 Pain in left foot (principal); M79.671 Pain in right foot; M77.32 Calcaneal spur, left foot
CPT/HCPCS: 73630